=== PATIENT | female | born 1990 | race Caucasian/White ===

== ENCOUNTER 2016-11-07 10:16 | Day surgery (SDC) | payer MEDICAID ==
[2016-11-07] VITALS (13 sets, daily range): BP systolic 91–121; BP diastolic 42–71; PULSE 16–61; RESP 13–52; Ht 160 cm; Wt 53.0 kg
[~2016-11-07] VITALS: Ht 160 cm; Wt 53.0 kg
[~2016-11-07 10:16] MED LIST: CEFAZOLIN 1 GM INJ ONE; CEFAZOLIN 1 GM/50 ML (PMX) 50 ML IVPB ONE; LIDOCAINE 2% (SDV) 5 ML INJ ONE; SOD CHLORIDE 0.9% 1,000 ML IV SCH
[2016-11-07 11:41] LABS: ADD SCAN DIFF NO
[2016-11-07 11:43] LABS: BASOPHILS % 0.2 % (0.0-2.0); EOSINOPHILS # 0.2 10^3/ul (0.0-0.5); EOSINOPHILS % 4.4 % (0.0-7.0); HEMATOCRIT 40.1 % (37.0-47.0); HEMOGLOBIN 13.3 g/dl (12.0-16.0); LYMPHOCYTES # 1.8 10^3/ul (0.8-2.9); LYMPHOCYTES % 33.3 % (15.0-51.0); MEAN CORPUSCULAR HEMOGLOBIN 29.6 pg (29.0-33.0); MEAN CORPUSCULAR HGB CONC 33.2 g/dl (32.0-37.0); MEAN CORPUSCULAR VOLUME 89.3 fl (82.0-101.0); MEAN PLATELET VOLUME 12.8 fl (7.4-10.4); MONOCYTE # 0.5 10^3/ul (0.3-0.9); MONOCYTES % 8.5 % (0.0-11.0); NEUTROPHIL # 2.9 10^3/ul (1.6-7.5); NEUTROPHILS % 53.4 % (39.0-77.0); PLATELET COUNT 172 10^3/UL (140-415); RED BLOOD COUNT 4.49 10^6/ul (4.20-5.40); RED CELL DISTRIBUTION WIDTH 13.5 % (11.5-14.5); WHITE BLOOD COUNT 5.4 10^3/ul (4.8-10.8)
[2016-11-07 11:50] LABS: ALBUMIN 4.6 g/dl (3.3-4.9); ALBUMIN/GLOBULIN RATIO 1.7; BILIRUBIN,INDIRECT 0.1 mg/dl (0-1.1); BILIRUBIN,TOTAL 0.1 mg/dl (0.2-1.3); TOTAL PROTEIN 7.3 g/dl (6.1-8.1)
[2016-11-07 11:53] LABS: CALCIUM 9.1 mg/dl (8.4-10.2); CREATININE 0.54 mg/dl (0.44-1.00); POTASSIUM 4.1 mmol/L (3.5-5.1)
[2016-11-07 12:03] LABS: INR 0.94; PROTIME 12.6 Sec (12.2-14.2)
[2016-11-07 12:04] LABS: PARTIAL THROMBOPLASTIN TIME 26.3 Sec (25.0-35.0)
[2016-11-07] MEDS ORDERED: FENTAnyl 50 MCG/ML VIAL IV PRN ×3 (13:00)
[2016-11-07] MEDS ORDERED: LABETALOL HCL 20MG INJ IV PRN (13:00)
[2016-11-07] MEDS ORDERED: ONDANSETRON 4 MG INJ IV PRN (13:00)
[2016-11-07] MEDS ORDERED: OXYCODONE/ACETAMINOPHEN (5/325) TAB PO PRN ×2 (13:00)
[2016-11-07] MEDS ORDERED: DIPHENHYDRAMINE 50 MG INJ IV PRN (13:00)
[2016-11-07] MEDS ORDERED: EPHEDrine SULFATE 50 MG/5 ML SYG IV PRN (13:00)
[2016-11-07] MEDS ORDERED: hydrALAzine 20 MG INJ IV PRN (13:00)
[2016-11-07] MEDS ORDERED: MEPERIDINE 25 MG INJ IV PRN (13:00)
[2016-11-07] MEDS ORDERED: MIDAZOLAM 1 MG/ML 2 ML INJ ONE (13:35)
[2016-11-07] MEDS ORDERED: FENTAnyl 50 MCG/ML VIAL ONE (13:36)
[2016-11-07] MEDS ORDERED: PROPOFOL 20 ML ONE (13:36)
[2016-11-07] MEDS ORDERED: BUPIVACAINE 0.5% (SDV) 30 ML INJ ONE (13:48)
[2016-11-07] MEDS ORDERED: LIDOCAINE 0.5% (MDV) 50 ML INJ ONE (13:59)
[2016-11-07] MEDS ORDERED: BACITRACIN 0.9 GM OINT ONE (14:02)
--- NOTE | 2016-11-11 09:33 | OPR ---
DATE OF OPERATION: 11/07/2016 PREOPERATIVE DIAGNOSIS: Cystic mass, right index finger. POSTOPERATIVE DIAGNOSIS: Cystic mass, right index finger. OPERATION PERFORMED: Excision of cystic mass, posterior surface of right index finger. ANESTHESIA: General . ANESTHESIOLOGIST: Dr. Hollingsworth. SURGEON: Dr. Rivera. PRODUCTION CLERKS SUPERVISOR: None. INDICATIONS FOR PROCEDURE: Patient is a 26-year-old female, who developed an enlarging mass over the distal phalanx of her right index finger on the posterior surface of the facet anterior before changing to posterior essentially consistent with probable epidermal inclusion cyst. She requested excision and consented and was scheduled for surgery. OPERATIVE PROCEDURE: Patient was brought to the operating theater, placed under general anesthesia. The right upper extremity was prepped and draped in the usual sterile fashion. A longitudinal incision was made directly over the mass and with a combination of sharp dissection and cautery, the mass, which was in the subcutaneous space, was encountered, appeared to be consistent with epidermal inclusion cyst. It was incised with its capsule, removed and sent for permanent pathologic analysis. The wound was then irrigated. Minimal bleeding was controlled with cautery and the skin was then reapproximated with 3-0 nylon sutures in simple interrupted fashion. The patient tolerated the procedure well. ESTIMATED BLOOD LOSS: 2 cc. COMPLICATIONS: There were no complications. The patient was transported in stable condition to recovery room. Dictated By: Jake Rivera MD /[email or web address] /Document#: [id number]
== END 2016-11-07 15:34 | disposition home or self-care (01) ==
LOC: SDS 10:16
PROVIDERS: ATTEND Surgery Surgical Oncology
DX: L72.0 Epidermal cyst (principal)
CPT/HCPCS: 11421; 80053; 84703; 85025; 85610; 85730; 88307; J0690; J2250; J3010; Z7512; Z7610

== ENCOUNTER 2016-11-15 12:19 | Emergency (ER) | payer MEDICAID ==
[~2016-11-15] VITALS: Ht 160 cm; Wt 52.0 kg
[2016-11-15 12:24] VITALS: Ht 160 cm; Wt 52.0 kg
[2016-11-15] MEDS ORDERED: CEPH-443 PO (12:40)
--- NOTE | 2016-11-15 12:49 | ERD ---
ER Documentation Chief Complaint Date/Time DATE: 11/15/16 TIME: 12:44 Chief Complaint CHECK WOUND ON RIGHT 2ND FINGER, S/P SURGERY 1WK AGO HPI 26 yo female had an epidermal inclusion cyst removal from her right index finger 8 days ago and comes in for wound check. She states that the area has become slightly more painful and erythematous. She has 2 sutures that are intact and she states that one part of the area was draining a clearish to yellow discharge. She is able to move her finger. She has not had any fevers or chills. ROS All systems reviewed and are negative except as per history of present illness. Medications Home Meds Active Scripts Cephalexin* (Keflex*) 500 Mg Capsule, 500 MG PO QID for 7 Days, CAP Prov:YUMIKO HOUSTON PA-C 11/15/16 Allergies Allergies: Coded Allergies: No Known Allergies (Verified Allergy, Unknown, 11/15/16) PMhx/Soc Medical and Surgical Hx: pt denies Medical Hx, pt denies Surgical Hx History of Surgery: No Anesthesia Reaction: No Hx Neurological Disorder: No Hx Respiratory Disorders: No Hx Cardiac Disorders: No Hx Psychiatric Problems: No Hx Miscellaneous Medical Probl: No Hx Alcohol Use: Yes (SOCIAL) Hx Substance Use: Yes (MARIJUANA ) Hx Tobacco Use: Yes (3-4 STICKS DAILY ) Smoking Status: Former smoker Physical Exam Vitals Vital Signs Date Time Temp Pulse Resp B/P Pulse Ox O2 Delivery O2 Flow Rate FiO2 11/15/16 12:24 98.4 75 18 112/55 96 Physical Exam General: Well-developed, well-nourished. The patient appears in no acute distress. HEENT: Head is normocephalic, atraumatic. No scleral icterus. Neck: Supple. Nontender. Lungs: Clear to auscultation. Normal air movement. Heart: Regular rate and rhythm. S1 and S2 are normal. No murmurs, gallops, or rubs. Abdomen: Nondistended. Extremities: Patient able to flex and extend at all joints of the right index finger, DIP, PIP and MCP joint. There are 2 sutures, they are over the PIP joint, there is erythema to it, no warmth, and there is swelling. There is no fluctuance. The distal suture is unraveling. The other one is intact. There is no dehiscence of the site Neurologic: Alert and oriented 3. No focal deficits. Normal speech and gait. Skin: Normal turgor. No rash or lesions. Procedures/MDM Suture Removal by me: Sutures removed with tweezers and scissors, 1 the proximal and that was unraveling. Patient comes in for wound check from an epidermal inclusion cyst removal of the right index finger. There is some erythema, swelling that is localized that is superficial. She has full range of motion does not show any evidence of septic arthritis of the finger tenosynovitis. The one suture does unraveling she states there was some drainage material from it, it was removed and she will be advised to do a warm compress, and take Keflex. She has a follow-up appointment with her surgeon Dr. Rivera on Thursday which is 4 days from now. Departure Diagnosis: Primary Impression: Encounter for postoperative wound check Condition: Good Patient Instructions: Post Op Wound Check, Pain Additional Instructions: Follow up with your surgeon on Thursday, return sooner if any worsening any symptoms. YUMIKO HOUSTON PA-C Nov 15, 2016 12:49
== END 2016-11-15 12:52 | disposition home or self-care (01) ==
LOC: FTE 12:19
DX: L53.9 Erythematous condition, unspecified (principal); Z48.01 Encounter for change or removal of surgical wound dressing; Z87.891 Personal history of nicotine dependence
CPT/HCPCS: 99283